=== PATIENT | female | born 1985 | race Caucasian/White ===

== ENCOUNTER 2019-03-14 13:36 | Emergency (ER) | payer OTHER ==
[~2019-03-14] VITALS: Ht 175.3 cm; Wt 54.4 kg
[2019-03-14] MEDS ORDERED: ASPIRIN 81 MG CHEW (CHILDREN'S ASA) PO ONE (14:15)
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
[2019-03-14 14:42] LABS: HEMATOCRIT 37 % (35-52); HEMOGLOBIN 12.2 G/DL (11.5-16.0); MEAN CORPUSCULAR HEMOGLOBIN 30 PG (25-34); MEAN CORPUSCULAR HGB CONC 33 G/DL (32-36); MEAN CORPUSCULAR VOLUME 90 FL (80-99); WHITE BLOOD COUNT 5.5 10^3/uL (4.3-11.0)
[2019-03-14 14:43] LABS: BASOPHILS % (AUTO) 1 % (0-10); EOSINOPHILS # (AUTO) 0.1 10^3/uL (0.0-0.3); EOSINOPHILS % (AUTO) 3 % (0-10); LYMPHOCYTES # (AUTO) 2.1 X 10^3 (1.0-4.0); LYMPHOCYTES % (AUTO) 37 % (12-44); MEAN PLATELET VOLUME 9.3 FL (7.4-10.4); MONOCYTES # (AUTO) 0.4 X 10^3 (0.0-1.0); MONOCYTES % (AUTO) 7 % (0-12); NEUTROPHILS # (AUTO) 2.9 X 10^3 (1.8-7.8); NEUTROPHILS % (AUTO) 52 % (42-75); PLATELET COUNT 223 10^3/uL (130-400); RED CELL DISTRIBUTION WIDTH 13.5 % (10.0-14.5)
[2019-03-14 15:04] LABS: BILIRUBIN,URINE NEGATIVE (NEGATIVE); CLARITY,URINE SL CLOUDY; COLOR,URINE YELLOW; GLUCOSE, URINE (UA) NEGATIVE (NEGATIVE); KETONES,URINE TRACE (NEGATIVE); LEUKOCYTE ESTERASE ,URINE NEGATIVE (NEGATIVE); NITRITE,URINE NEGATIVE (NEGATIVE); PROTEIN,URINE NEGATIVE (NEGATIVE); SQUAMOUS EPITHELIAL CELL,UR >50 /HPF; UROBILINOGEN,URINE 0.2 MG/DL (NORMAL)
[2019-03-14 15:05] LABS: AMORPHOUS SEDIMENT,UR MOD AMOR URATES /LPF
[2019-03-14 15:05] LABS: BUN/CREATININE RATIO 18; CALCIUM 9.6 MG/DL (8.5-10.1); CARBON DIOXIDE 27 MMOL/L (21-32); CHLORIDE 103 MMOL/L (98-107); GFR ESTIMATED > 60; GLUCOSE 90 MG/DL (70-105); MAGNESIUM 2.2 MG/DL (1.6-2.4); POTASSIUM 4.3 MMOL/L (3.6-5.0); SODIUM 142 MMOL/L (135-145)
[2019-03-14 15:06] LABS: ALANINE AMINOTRANSFERASE 10 U/L (0-55); ALBUMIN 4.4 GM/DL (3.2-4.5); ALKALINE PHOSPHATASE 21 U/L (40-136); BILIRUBIN,TOTAL 0.2 MG/DL (0.1-1.0); TOTAL PROTEIN 7.2 GM/DL (6.4-8.2)
[2019-03-14 15:09] LABS: PROTHROMBIN TIME PATIENT 13.1 SEC (12.2-14.7)
[2019-03-14 15:09] LABS: AMPHETAMINE SCREEN, URINE NEGATIVE (NEGATIVE); BARBITURATE SCREEN URINE NEGATIVE (NEGATIVE); BENZODIAZEPINES SCREEN URINE NEGATIVE (NEGATIVE); CANNABINOID SCREEN, URINE NEGATIVE (NEGATIVE); COCAINE SCREEN URINE NEGATIVE (NEGATIVE); METHADONE STAT NEGATIVE (NEGATIVE); METHAMPHETAMINE SCREEN URINE S NEGATIVE (NEGATIVE); OPIATE SCREEN URINE NEGATIVE (NEGATIVE); OXYCODONE STAT NEGATIVE (NEGATIVE); PROPOXYPHENE STAT NEGATIVE (NEGATIVE); TRICYCLIC ANTIDEPRESSANTS SCRE NEGATIVE (NEGATIVE)
[2019-03-14 15:33] VITALS: BP 95/52
--- NOTE | 2019-03-14 15:41 | Diagnostic Imaging Report ---
INDICATION: Chest pain, anxiety, convulsions. EXAMINATION: Chest, 03/14/2019. FINDINGS: Lungs are hyperinflated but clear. No infiltrates or effusions. No pneumothorax. Heart and pulmonary vasculature are normal in appearance. IMPRESSION: Hyperinflation of the lungs, otherwise negative chest. Dictated by: Dictated on workstation # [id number]
== END 2019-03-14 15:33 | disposition home or self-care (01) ==
LOC: EDUNIT# 13:36 → ER FS 13:38
DX: R07.9 Chest pain, unspecified (principal); R06.02 Shortness of breath; F31.9 Bipolar disorder, unspecified; F17.210 Nicotine dependence, cigarettes, uncomplicated
CPT/HCPCS: 36415; 71045; 80053; 80306; 81000; 83735; 83874; 83880; 84484; 84703; 85025; 85610; 85730; 93005; 93041

== ENCOUNTER 2019-06-25 15:20 | Emergency (ER) | payer SELFPAY ==
[~2019-06-25] VITALS: Ht 175 cm; Wt 59.0 kg
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
[2019-06-25] MEDS ORDERED: IBUP-1780 PO (16:13)
[2019-06-25] MEDS ORDERED: HYDR-3812 PO (16:13)
[2019-06-25 16:32] VITALS: BP 112/79
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
== END 2019-06-25 16:30 | disposition home or self-care (01) ==
LOC: ER FS 15:21
DX: S00.83XA Contusion of other part of head, initial encounter (principal); F41.9 Anxiety disorder, unspecified; F31.9 Bipolar disorder, unspecified; F17.210 Nicotine dependence, cigarettes, uncomplicated; Y04.0XXA Assault by unarmed brawl or fight, initial encounter; Y92.009 Unspecified place in unspecified non-institutional (private) residence as the place of occurrence of the external cause
CPT/HCPCS: 70450; 70486

== ENCOUNTER 2019-10-20 14:46 | Emergency (ER) | payer SELFPAY ==
[~2019-10-20] VITALS: Ht 175 cm; Wt 51.6 kg
[~2019-10-20 14:46] MED LIST: ACHD5005 PO; IBUP-1780 PO
[2019-10-20] MEDS ORDERED: BUPR150T14 (15:11)
[2019-10-20] MEDS ORDERED: QUET25TA73 (15:11)
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
[2019-10-20 16:34] VITALS: BP 117/92
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
[2019-10-21] MEDS ORDERED: DIVA250T12 PO (09:01)
[2019-10-21] MEDS ORDERED: BUPR150T9 PO (09:01)
== END 2019-10-20 16:38 | disposition home or self-care (01) ==
LOC: EDUNIT# 14:46 → ER FS 14:49
DX: T43.291A Poisoning by other antidepressants, accidental (unintentional), initial encounter (principal); F31.9 Bipolar disorder, unspecified; F32.9 Major depressive disorder, single episode, unspecified; F17.290 Nicotine dependence, other tobacco product, uncomplicated
CPT/HCPCS: 99283

== ENCOUNTER 2019-10-20 22:22 | Observation (INO) | payer SELFPAY ==
[~2019-10-20] VITALS: Ht 152.4 cm; Wt 60.4 kg
[~2019-10-20 22:22] MED LIST changes: +BUPR150T14; +QUET25TA73
[2019-10-20] MEDS ORDERED: NS IV 1000 ML 1,000 ML ONE ×2 (22:29→23:14)
--- NOTE | 2019-10-20 22:48 | ED Psychosocial ---
General Chief Complaint: Substance Abuse Stated Complaint: OVERDOSE Source: patient Exam Limitations: no limitations History of Present Illness Date Seen by Provider: Oct 20, 2019 Time Seen by Provider: 22:33 Initial Comments Xvydvoxo-xnoc-zsk female read presents to the emergency room. Patient has been seen earlier this evening and she stated to me that she had taken 5 Wellbutrin sustained release 150 mg tablets erroneously thinking that they were her Depakot e. Patient did report that she had taken 6 tablets to the RN. Patient was evaluated found to be medically stable and returned home. She states that she received a telephone call from the [facility] that told her that she needed to be admitted to the hospital for observation for at least 24 hours. This upset the patient she became nauseated came back into the emergency room and we are reevaluating the patient. Patient has nausea but no evidence of emesis. She has more emotionally distraught because she feels that she is at risk from the bupropion exposure. She has no history of seizures. Patient denies alterative the pills and swallowed them as sustained release. Patient did consent to diagnostic and therapeutic services. Normal saline hydration has been started and comprehensive laboratory evaluation for potential psychiatric admission has been initiated. Patient denies any possibility of but test is being done. Urine toxicology and alcohol levels also been done. Should be noted this consultation utilizes [employer] software and efforts of been made to review all errors and correct them. Any errors that have penetrated the review process are not intentional. If there are any questions regarding this dictation please contact Dionisio Wong DO Timing/Duration: just prior to arrival Severity: mild (patient is more upset after the telephone call from the Poison Control Center) Associated Symptoms: anxiety, other (patient has become nauseated after the call from the Po[facility] Control Center) Allergies and Home Medications Allergies Coded Allergies: No Known Drug Allergies (Unverified , 03/14/19) Patient Home Medication List Home Medication List Reviewed: Yes Review of Systems Constitutional: other (the previous admission earlier to this evening the patient denies any other symptoms. She now is emotionally upset and nauseated after the telephone call from the Po[facility] Control Center) EENTM: no symptoms reported, nose congestion (from nausea) Respiratory: no symptoms reported Cardiovascular: no symptoms reported Gastrointestinal: nausea (but no observed emesis) : No Musculoskeletal: no symptoms reported Skin: no symptoms reported, other (old tattoos and scars healed on the forearms. She was engaged in ongoing psychotherapy with Sandra from the mental health clinic) Psychiatric/Neurological: Anxiety, Depressed (denies suicidal or homicidal ideation), Emotional Problems Past Avizzdf-Mchvwl-Ffgnit Hx Patient Social History Alcohol Use: Denies Use Recreational Drug Use: Yes Drug of Choice: Meth Smoking Status: Smoker Current Status UKN Type Used: Electronic/Vapor 2nd Hand Smoke Exposure: No Recent Foreign Travel: No Contact w/Someone Who Travel: No Recent Hopitalizations: No Immunizations Up To Date Tetanus Booster (TDap): More than 5yrs Seasonal Allergies Seasonal Allergies: No Past Medical History Surgeries: Yes (Dental) Respiratory: No Cardiac: No Neurological: No Genitourinary: No Gastrointestinal: No Musculoskeletal: No Endocrine: No HEENT: No Cancer: No Psychosocial: Yes Anxiety, Bipolar, Depression Integumentary: No Blood Disorders: No Physical Exam Vital Signs - First Documented 10/20/19 22:30 Temp 36.4 Pulse 91 Resp 18 B/P (MAP) 113/77 (89) O2 Delivery Room Air Capillary Refill : Height, Weight, BMI Height: 5'9.00" Weight: 120lbs. oz. 54.842781sk; 16.00 BMI Method:Stated General Appearance: WD/WN, mild distress (and admits to agitation nausea and emotional distress after the telephone call from the Po[facility] Control Center), thin HEENT: PERRL/EOMI, normal ENT inspection, pharynx normal Neck: non-tender, full range of motion, supple, normal inspection Respiratory: chest non-tender, lungs clear, normal breath sounds, no respiratory distress, no accessory muscle use Cardiovascular: regular rate, rhythm, no edema, no gallop, no JVD, no murmur Peripheral Pulses: 2+ Carotid (R), 2+ Carotid (L) Gastrointestinal: normal bowel sounds, non tender, soft, no organomegaly, no pulsatile mass, other (L complains of nausea but no evidence of emesis) Extremities: normal range of motion, non-tender, normal inspection, no pedal edema, no calf tenderness 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, no motor/sensory deficits, alert, normal mood/affect, oriented x 3 Appearance/Memory: appropriate appearance, appropriate insight (visibly more upset after the telephone call from the Po[facility] Control [facility]) Behavior/Eye Contact: cooperative, good eye contact, normal speech, other (admits to emotional upset after call from the Po[facility] Control Center) Thoughts/Hallucinations: normal thought pattern, no apparent hallucination Skin: normal color, warm/dry, tattoos/piercings Lymphatic: no adenopathy Progress/Results/Core Measures Results/Orders Lab Results Laboratory Tests Test 10/20/19 22:32 10/21/19 00:06 Range/Units White Blood Count 7.3 4.3-11.0 10^3/uL Red Blood Count 4.26 L 4.35-5.85 10^6/uL Hemoglobin 12.6 11.5-16.0 G/DL Hematocrit 37 35-52 % Mean Corpuscular Volume 87 80-99 FL Mean Corpuscular Hemoglobin 30 25-34 PG Mean Corpuscular Hemoglobin Concent 34 32-36 G/DL Red Cell Distribution Width 12.3 10.0-14.5 % Platelet Count 329 130-400 10^3/uL Mean Platelet Volume 9.5 7.4-10.4 FL Neutrophils (%) (Auto) 73 42-75 % Lymphocytes (%) (Auto) 20 12-44 % Monocytes (%) (Auto) 7 0-12 % Eosinophils (%) (Auto) 0 0-10 % Basophils (%) (Auto) 0 0-10 % Neutrophils # (Auto) 5.3 1.8-7.8 X 10^3 Lymphocytes # (Auto) 1.4 1.0-4.0 X 10^3 Monocytes # (Auto) 0.5 0.0-1.0 X 10^3 Eosinophils # (Auto) 0.0 0.0-0.3 10^3/uL Basophils # (Auto) 0.0 0.0-0.1 10^3/uL Sodium Level 141 135-145 MMOL/L Potassium Level 4.0 3.6-5.0 MMOL/L Chloride Level 102 98-107 MMOL/L Carbon Dioxide Level 23 21-32 MMOL/L Anion Gap 16 H 5-14 MMOL/L Blood Urea Nitrogen 8 7-18 MG/DL Creatinine 0.91 0.60-1.30 MG/DL Estimat Glomerular Filtration Rate > 60 BUN/Creatinine Ratio 9 Glucose Level 123 H 70-105 MG/DL Calcium Level 9.6 8.5-10.1 MG/DL Corrected Calcium 8.5-10.1 MG/DL Magnesium Level 2.0 1.6-2.4 MG/DL Total Bilirubin 0.4 0.1-1.0 MG/DL Aspartate Amino Transf (AST/SGOT) 15 5-34 U/L Alanine Aminotransferase (ALT/SGPT) 10 0-55 U/L Alkaline Phosphatase 60 40-136 U/L Total Protein 7.8 6.4-8.2 GM/DL Albumin 4.6 H 3.2-4.5 GM/DL Salicylates Level < 0.3 L 5.0-20.0 MG/DL Acetaminophen Level < 10 L 10-30 UG/ML Serum Alcohol < 10 <10 MG/DL Urine Color YELLOW Urine Clarity CLEAR Urine pH 7.0 5-9 Urine Specific Avant 1.010 L 1.016-1.022 Urine Protein NEGATIVE NEGATIVE Urine Glucose (UA) NEGATIVE NEGATIVE Urine Ketones NEGATIVE NEGATIVE Urine Nitrite NEGATIVE NEGATIVE Urine Bilirubin NEGATIVE NEGATIVE Urine Urobilinogen 0.2 < = 1.0 MG/DL Urine Leukocyte Esterase 1+ H NEGATIVE Urine RBC (Auto) NEGATIVE NEGATIVE Urine RBC NONE /HPF Urine WBC 10-25 H /HPF Urine Squamous Epithelial Cells 2-5 /HPF Urine Crystals NONE /LPF Urine Bacteria FEW H /HPF Urine Casts NONE /LPF Urine Mucus NEGATIVE /LPF Urine Culture Indicated YES Urine Test NEGATIVE NEGATIVE Urine Opiates Screen NEGATIVE NEGATIVE Urine Oxycodone Screen NEGATIVE NEGATIVE Urine Methadone Screen NEGATIVE NEGATIVE Urine Propoxyphene Screen NEGATIVE NEGATIVE Urine Barbiturates Screen NEGATIVE NEGATIVE Ur Tricyclic Antidepressants Screen NEGATIVE NEGATIVE Urine Phencyclidine Screen NEGATIVE NEGATIVE Urine Amphetamines Screen POSITIVE H NEGATIVE Urine Methamphetamines Screen POSITIVE H NEGATIVE Urine Benzodiazepines Screen NEGATIVE NEGATIVE Urine Cocaine Screen NEGATIVE NEGATIVE Urine Cannabinoids Screen NEGATIVE NEGATIVE My Orders Orders - DIONISIO WONG DO Ns Iv 1000 Ml (Sodium Chloride 0.9%) (10/20/19 22:29) Cbc With Automated Diff (10/20/19 22:34) Comprehensive Metabolic Panel (10/20/19 22:34) Alcohol (10/20/19 22:34) Acetaminophen (10/20/19 22:34) Salicylate (10/20/19 22:34) Ua Culture If Indicated (10/20/19 22:34) Drug Screen Stat (Urine) (10/20/19 22:34) Ed Iv/Invasive Line Start (10/20/19 22:34) Hcg,Qualitative Urine (10/20/19 22:39) Magnesium (10/20/19 22:39) Urinalysis (10/20/19 22:39) Ekg Tracing (10/20/19 22:39) Ns Iv 1000 Ml (Sodium Chloride 0.9%) (10/20/19 23:14) Urine Culture (10/21/19 00:06) Medications Given in ED Current Medications Medications Dose Ordered Sig/Leah Route Start Time Stop Time Status Last Admin Dose Admin Sodium Chloride 1,000 ml @ ud STK-MED ONCE .ROUTE 10/20/19 22:29 10/20/19 22:35 DC 10/20/19 22:38 1,000 MLS/HR Sodium Chloride 1,000 ml @ ud STK-MED ONCE .ROUTE 10/20/19 23:14 10/20/19 23:20 DC 10/20/19 23:22 1,000 MLS/HR Vital Signs/I&O 10/20/19 22:30 Temp 36.4 Pulse 91 Resp 18 B/P (MAP) 113/77 (89) O2 Delivery Room Air 10/21/19 00:00 Intake Total 1000 ml Balance 1000 ml Progress Progress Note : Time: 01:01 Progress Note Patient appears to be medically stable but in light of the accidental ingestion of any worse between 750 mg and 900 mg of bupropion patient is advised to have inpatient care with observation for total 24 hours. She is been observed in the emergency room for the past evening. Dr. Burt was contacted as a hospitalist and agrees to [facility] admission for observation and admission orders have been submitted. Patient will be transferred by EMS Initial ECG Impression Date: Oct 21, 2019 Initial ECG Impression Time: 22:57 Initial ECG Rate: 82 Initial ECG Intervals: Normal Initial ECG Impression: Normal Departure Impression Primary Impression: Bupropion overdose Additional Impressions: Methamphetamine abuse Urinary tract infection Disposition: ADMITTED INPATIENT (observation) Condition: Improved Admissions Decision to Admit Reason: Admit from ER (General) Decision to Admit/Date: Oct 21, 2019 Time/Decision to Admit Time: 01:05 Transfer Transfer Reason: Exceeds level of care Time Spoke to Accepting Phy: 00:[address] Burt as hospitalist has accepted the patient [facility] observation for bupropion overdose patient has no signs of suicidal or homicidal ideation but did have positive findings for methamphetamine use. She also has urinary tract infection is being treated with Bactrim DS Transfer Time: 01:06 Transfer Facility: [facility] Method of Transfer: EMS Departure-Patient Inst. Referrals: NO,LOCAL PHYSICIAN (PCP/Family) Primary Care Physician Patient Instructions: ALCOHOL AND SUBSTANCE ABUSE, Accidental Overdose (DC), Methamphetamine, Urinary Tract Infection, Adult (DC) Add. Discharge Instructions: [facility] being admitted for observation for accidental overdose of bupropion. Patient reports that she took between 750 and 900 mg of Wellbutrin 150 SR by mistake thinking it was her Depakote. Patient does have a therapist Sandra in the local mental health facilities she is not suicidal or homicidal and has no evidence of psychoses or delusions. Patient also has urinary tract infection will be started on Bactrim DS Dr. Burt will assume responsibility for the patient orders have been written transfer orders have been written All discharge instructions reviewed with patient and/or family. Voiced understanding. Copy Copies To 1: BEBA BURT MD, ANTHONY H DO Oct 20, 2019 22:48
--- NOTE | 2019-10-20 22:53 | NUR ---
PT. REPORTED SHE ACCIDENTLY TOOK THE WELLBUTRIN WHEN SHE WAS TAKING HER OTHER MEDICATION AND GOT THEM MIXED UP. PT. REPORTED SHE DID NOT TRY TO HURT HERSELF AND THERE WAS NO MENTAL HEALTH SCREENING TODAY.
[2019-10-20 22:55] LABS: BASOPHILS % (AUTO) 0 % (0-10); EOSINOPHILS % (AUTO) 0 % (0-10); HEMATOCRIT 37 % (35-52); HEMOGLOBIN 12.6 G/DL (11.5-16.0); LYMPHOCYTES # (AUTO) 1.4 X 10^3 (1.0-4.0); LYMPHOCYTES % (AUTO) 20 % (12-44); MEAN CORPUSCULAR HEMOGLOBIN 30 PG (25-34); MEAN CORPUSCULAR HGB CONC 34 G/DL (32-36); MEAN CORPUSCULAR VOLUME 87 FL (80-99); MEAN PLATELET VOLUME 9.5 FL (7.4-10.4); MONOCYTES # (AUTO) 0.5 X 10^3 (0.0-1.0); MONOCYTES % (AUTO) 7 % (0-12); NEUTROPHILS # (AUTO) 5.3 X 10^3 (1.8-7.8); NEUTROPHILS % (AUTO) 73 % (42-75); PLATELET COUNT 329 10^3/uL (130-400); RED CELL DISTRIBUTION WIDTH 12.3 % (10.0-14.5); WHITE BLOOD COUNT 7.3 10^3/uL (4.3-11.0)
[2019-10-20 23:05] LABS: ALKALINE PHOSPHATASE 60 U/L (40-136); BILIRUBIN,TOTAL 0.4 MG/DL (0.1-1.0); BUN/CREATININE RATIO 9; CALCIUM 9.6 MG/DL (8.5-10.1); CARBON DIOXIDE 23 MMOL/L (21-32); CHLORIDE 102 MMOL/L (98-107); CREATININE SERUM 0.91 MG/DL (0.60-1.30); GFR ESTIMATED > 60; GLUCOSE 123 MG/DL (70-105); SODIUM 141 MMOL/L (135-145)
[2019-10-20 23:06] LABS: ACETAMINOPHEN < 10 UG/ML (10-30); ALANINE AMINOTRANSFERASE 10 U/L (0-55); ALBUMIN 4.6 GM/DL (3.2-4.5); SALICYLATE < 0.3 MG/DL (5.0-20.0); TOTAL PROTEIN 7.8 GM/DL (6.4-8.2)
--- NOTE | 2019-10-20 23:33 | NUR ---
PT. UNABLE TO VOID SO THE 2ND LITER OF FLUIDS WAS STARTED. PT RECEIVED A BLANKET AT THIS TIME.
[2019-10-21] VITALS (7 sets, daily range): BP systolic 107–169; BP diastolic 65–96
[2019-10-21 00:19] LABS: BACTERIA,URINE FEW /HPF; BILIRUBIN,URINE NEGATIVE (NEGATIVE); CLARITY,URINE CLEAR; COLOR,URINE YELLOW; GLUCOSE, URINE (UA) NEGATIVE (NEGATIVE); KETONES,URINE NEGATIVE (NEGATIVE); NITRITE,URINE NEGATIVE (NEGATIVE); PROTEIN,URINE NEGATIVE (NEGATIVE)
[2019-10-21 00:20] LABS: LEUKOCYTE ESTERASE ,URINE 1+ (NEGATIVE)
[2019-10-21 00:23] LABS: AMPHETAMINE SCREEN, URINE POSITIVE (NEGATIVE); BARBITURATE SCREEN URINE NEGATIVE (NEGATIVE); BENZODIAZEPINES SCREEN URINE NEGATIVE (NEGATIVE); CANNABINOID SCREEN, URINE NEGATIVE (NEGATIVE); COCAINE SCREEN URINE NEGATIVE (NEGATIVE); HCG,QUALITATIVE URINE NEGATIVE (NEGATIVE); METHADONE STAT NEGATIVE (NEGATIVE); METHAMPHETAMINE SCREEN URINE S POSITIVE (NEGATIVE); OPIATE SCREEN URINE NEGATIVE (NEGATIVE); OXYCODONE STAT NEGATIVE (NEGATIVE); PROPOXYPHENE STAT NEGATIVE (NEGATIVE); TRICYCLIC ANTIDEPRESSANTS SCRE NEGATIVE (NEGATIVE)
[2019-10-21] MEDS ORDERED: TRIM/SULFAMETH 160/800 (SEPTRA DS) TAB PO ONE ×2 (00:53→01:15)
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
--- NOTE | 2019-10-21 02:23 | NUR ---
ABDI JOYNER V admitted to room 407-1, with an admitting diagnosis of , on 10/21/19 from ED via EMS, accompanied by EMS STAFF.ABDI JOYNER V introduced to surroundings, call light, bed controls, phone, TV, temperature control, lights, meal times, smoking policy, visitor policy, side rail policy, bathrooms and showers. Patient Rights given to patient in the handbook.ABDI JOYNER V verbalizes understanding that [facility] is not responsible for the loss or damage to any personal effects or valuables that are kept in the patients posession during their hospitalization. The following Patient Care Plans were discussed with the PATIENT: Discharge Planning, UTI,BUPROPION OVERDOSE, and METHAMPHETAMINE ABUSE. ABDI JOYNER V verbalizes understanding of Interdisciplinary Patient Education. Patient and/or family were informed about the Rapid Response Team and its purpose.
[2019-10-21] MEDS ORDERED: NS IV 1000 ML 1,000 ML ONE (03:58)
[2019-10-21 05:04] LABS: BASOPHILS % (AUTO) 0 % (0-10); EOSINOPHILS % (AUTO) 1 % (0-10); HEMATOCRIT 32 % (35-52); HEMOGLOBIN 10.7 G/DL (11.5-16.0); LYMPHOCYTES # (AUTO) 1.4 X 10^3 (1.0-4.0); LYMPHOCYTES % (AUTO) 27 % (12-44); MEAN CORPUSCULAR HEMOGLOBIN 30 PG (25-34); MEAN CORPUSCULAR HGB CONC 33 G/DL (32-36); MEAN CORPUSCULAR VOLUME 89 FL (80-99); MEAN PLATELET VOLUME 9.2 FL (7.4-10.4); MONOCYTES # (AUTO) 0.5 X 10^3 (0.0-1.0); MONOCYTES % (AUTO) 10 % (0-12); NEUTROPHILS # (AUTO) 3.2 X 10^3 (1.8-7.8); NEUTROPHILS % (AUTO) 62 % (42-75); PLATELET COUNT 236 10^3/uL (130-400); RED CELL DISTRIBUTION WIDTH 12.6 % (10.0-14.5); WHITE BLOOD COUNT 5.2 10^3/uL (4.3-11.0)
[2019-10-21 05:28] LABS: ALANINE AMINOTRANSFERASE 11 U/L (0-55); ALBUMIN 3.7 GM/DL (3.2-4.5); ALKALINE PHOSPHATASE 48 U/L (40-136); BILIRUBIN,TOTAL 0.4 MG/DL (0.1-1.0); BUN/CREATININE RATIO 8; CALCIUM 8.2 MG/DL (8.5-10.1); CARBON DIOXIDE 21 MMOL/L (21-32); CHLORIDE 111 MMOL/L (98-107); CREATININE SERUM 0.74 MG/DL (0.60-1.30); GFR ESTIMATED > 60; GLUCOSE 92 MG/DL (70-105); POTASSIUM 3.7 MMOL/L (3.6-5.0); SODIUM 141 MMOL/L (135-145); TOTAL PROTEIN 5.9 GM/DL (6.4-8.2)
[2019-10-21] MEDS: TRIM/SULFAMETH 160/800 (SEPTRA DS) TAB PO SCH ×2 (07:28→17:06)
[2019-10-21] MEDS ORDERED: DIVA250T12 PO (09:01)
[2019-10-21] MEDS ORDERED: BUPR150T9 PO (09:01)
--- NOTE | 2019-10-21 09:01 | NUR ---
SPOKE WITH THE PT, WENT THRU THE EXT MED HISTORY AND CALLED THE MENTAL HEALTH FACILITY SHE GOES TO AND [facility] TO COMPLETE THE MED REC PT ADMITS SHE IS NON-COMPLIANT AND STARTS AND STOPS MEDICATIONS SHE SEES FIT. AT HER LAST APPT AT [facility] OFFICE THEY GAVE HER DEPAKOTE 250MG #93/23 DS AND SENT OTHER RXS TO [facility] TO BE FILLED. 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 PRAZOSIN AND SEROQUEL ARE THE MEDS THE PT SAYS SHE HAS NOT BEEN TAKING AT ALL (FOR THIS REASON I LEFT THEM OFF THE MED REC) I SPOKE WITH THE ATTENDING PHYSICIAN TO FIND OUT ABOUT PUTTING THEM ON THE MED REC (USUALLY I WOULD LEAVE THESE OFF THE MED REC DUE TO THE PAST DUE FILL, BUT DUE TO THE TYPE OF MEDS I WANTED THE PHYSICIAN TO BE AWARE ) -SHE AGREED AND WANTED DEPAKOTE AND WELLBUTRIN ADDED TO THE MED REC. I DID DOCUMENT THE PAST DUE FILL ON THE MED REC.
--- NOTE | 2019-10-21 11:14 | Short Stay Summary-Hospitalist ---
History of Present Illness HPI/Chief Complaint patient is a 34 old female with past medical history of anxiety and depression who presented to the emergency department after an accidental overdose. She states that she normally takes 5 Depakote but accidentally took 5 tabs of her 150mg Wellbutrin. She denies any suicidal or self harm intentions. She last filled her medications in April or May and then went to rehab and then attempted to treat her symptoms naturally without prescription medications. She recently restarted them. She is follow with Sandra Rangel at the [facility]. Poison Control was contacted and recommended 24 hours of observation. Date Seen 10/21/19 Time Seen by a Provider: 10:51 Attending Physician Baldemar Dickerson MD PCP No,Local Physician Referring Physician Date of Admission Oct 21, 2019 at 00:50 Home Medications & Allergies Home Medications Reviewed patient Home Medication Reconciliation performed by pharmacy medication reconciliations industrial maintenance technician and/or nursing. Patients Allergies have been reviewed. Allergies Allergies Coded Allergies No Known Drug Allergies (Unverified03/14/19) Past Xejomsq-Lbdynl-Qosqrz Hx Past Med/Social Hx: Reviewed Nursing Past Med/Soc Hx Patient Social History Alcohol Use: Denies Use Recreational Drug Use: Yes Drug of Choice: Meth Smoking Status: Smoker Current Status [facility] Type Used: Electronic/Vapor 2nd Hand Smoke Exposure: No Recent Foreign Travel: No Contact w/other who traveled: No Recent Hopitalizations: No Recent Infectious Disease Expo: No Immunizations Up To Date Tetanus Booster (TDap): More than 5yrs Seasonal Allergies Seasonal Allergies: No Past Medical History : No Psychosocial: Anxiety, Bipolar, Depression History of Blood Disorders: No Family History FH: multiple sclerosis Review of Systems Constitutional: No chills, No fever Respiratory: No cough, No short of breath Psychiatric/Neurological: Headache All Other Systems Reviewed Negative Unless Noted: Yes (Negative excepted noted.) Physical Exam Physical Exam Vital Signs Vital Signs - First Documented 10/20/19 10/21/19 10/21/19 22:30 01:23 13:41 Temp 36.4 Pulse 91 Resp 18 B/P (MAP) 113/77 (89) Pulse Ox 100 O2 Delivery Room Air O2 Flow Rate 3.00 Capillary Refill : Less Than 3 Seconds Height, Weight, BMI Height: 5'9.00" Weight: 120lbs. oz. 54.833792ho; 16.71 BMI Method:Stated General Appearance: No Apparent Distress, WD/WN, Thin HEENT: PERRL/EOMI, Moist Mucous Membranes Neck: Normal Inspection, Supple Respiratory: Lungs Clear, No Accessory Muscle Use, No Respiratory Distress Cardiovascular: Regular Rate, Rhythm, No Murmur Gastrointestinal: Normal Bowel Sounds, Non Tender, Soft Extremity: No Calf Tenderness, No Pedal Edema Neurologic/Psychiatric: Alert, Oriented x3, Normal Mood/Affect Skin: Normal Color, Warm/Dry Results Results/Procedures Labs Laboratory Tests 10/20/19 22:32 10/21/19 04:55 Patient resulted labs reviewed. Short Stay Diagnosis Discharge Diagnosis-Short Stay Admission Diagnosis Accidental Overdose Final Discharge Diagnosis Accidental Overdose Conclusion Plan Accidental Overdose No intention of any self harm per patient Will follow up with her mental health provider Monitored overnight for 24 hours per poison control recs without complication Doing well, will DC home Diagnosis/Problems Diagnosis/Problems (1) Accidental overdose Status: Acute Qualifiers: Qualified Codes: T50.901A - Poisoning by unspecified drugs, medicaments and biological substances, accidental (unintentional), initial encounter Clinical Quality Measures DVT/VTE Risk/Contraindication: RFS Level Per Nursing on Admit: 0=No Risk/No VTE PPX LUIS MADRID MD Oct 21, 2019 11:13
[2019-10-21] MEDS: NS IV 1000 ML 1,000 ML IV SCH ×2 (12:09→13:11)
--- NOTE | 2019-10-21 15:12 | Discharge Inst-Simple/Standard ---
Discharge Inst-Standard Patient Instructions/Follow Up Plan of Care/Instructions/FU: Please continue to take your medications as written. Please follow up with your PCP in the next week to follow up this hospital stay. Activity as Tolerated: Yes Discharge Diet: No Restrictions Return to The Hospital For: Chest pain, palpitations, shortness of breath, fever, if you feel you are getting worse. LUIS MADRID MD Oct 21, 2019 15:12
--- NOTE | 2019-10-21 16:16 | NUR ---
CM/SS: Visited with pt as to plan for discharge Plan: Pt will return home, with no services. However she is encouraged to obtain a primary physician, mental health and substance abuse counseling. Summary: Pt reports that she had taken too many meds. Pt shares that she has an extensive history, related to drugs, alcohol, and messed up life. This worker talks with pt. She appears to be open and honest and knows what she needs to do to feel better and remain clean and sober, but has a hard time doing so. Pt has a 5 year old son, who is in the custody of his father. Pt does get to see him. Pt was recently in treatment and was kicked out on the last day for making out with one of the male residents. Pt was court ordered to be there. Pt verbalizes understanding of the services needed. She is aware how to access and knows whenever she is ready she can do so. She thanks this worker for visiting. Pt to be dismissed to home, once her ride arrives.
== END 2019-10-21 19:40 | disposition home or self-care (01) ==
LOC: EDUNIT# 22:22 → ER FS 22:24 → 4TH 10-21 00:50
PROVIDERS: ADMIT Internal Medicine; ATTEND Internal Medicine
DX: T42.6X1A Poisoning by other antiepileptic and sedative-hypnotic drugs, accidental (unintentional), initial encounter (principal); N39.0 Urinary tract infection, site not specified; F15.10 Other stimulant abuse, uncomplicated; F41.9 Anxiety disorder, unspecified; F31.9 Bipolar disorder, unspecified; F17.290 Nicotine dependence, other tobacco product, uncomplicated; Z79.899 Other long term (current) drug therapy
CPT/HCPCS: 36415; 80053; 80306; 80320; 80329; 81000; 83735; 84703; 85025; 87077; 87088

== ENCOUNTER 2020-04-27 18:20 | Outpatient (CLI) | payer MEDICAID, OTHER ==
[~2020-04-27] VITALS: Ht 175.3 cm; Wt 63.3 kg
[~2020-04-27 18:20] MED LIST changes: +BUPR150T9 PO; +DIVA250T12 PO
--- NOTE | 2020-04-27 18:25 | NUR ---
ABDI JOYNER V presented to unit via ambulation from ED, accompanied by mother, with c/o SPOTTING;LOW BACK PAIN. ABDI JOYNER V weighed, gowned, voided, and to bed. EFHM and TOCO applied, VS taken. ABDI JOYNER V oriented to bed controls, call light, TV, heat, and A/C controls.
[2020-04-27 18:30] VITALS: BP 106/63
[2020-04-27 18:45] VITALS: BP 106/63
[2020-04-27 18:53] LABS: BILIRUBIN,URINE NEGATIVE (NEGATIVE); COLOR,URINE YELLOW; GLUCOSE, URINE (UA) NEGATIVE (NEGATIVE); KETONES,URINE NEGATIVE (NEGATIVE); LEUKOCYTE ESTERASE ,URINE 3+ (NEGATIVE); NITRITE,URINE POSITIVE (NEGATIVE); PROTEIN,URINE TRACE (NEGATIVE)
[2020-04-27 18:58] LABS: BACTERIA,URINE LARGE /HPF; CLARITY,URINE SL CLOUDY; RBC,URINE 0-2 /HPF; WBC,URINE 25-50 /HPF
[2020-04-27 19:15] VITALS: BP 101/57
--- NOTE | 2020-04-27 19:28 | NUR ---
Pt states that she had consensual intercourse last night. After the intercourse she noticed bright red bleeding. states she went to bed and had some spotting when she woke up. States she was treated for Chlamydia one week ago and is uncertain if her s/o was treated as well. Visual exam performed of vaginal area. no active bleeding noted. notified of exam, u/a results given. Discharge received.
[2020-04-27] MEDS ORDERED: CEPH-507 PO (19:38)
[2020-04-27] MEDS ORDERED: AZITHROMYCIN 250 MG TAB (ZITHROMAX) PO NR (19:45)
[2020-04-27] MEDS ORDERED: PREN-8 PO (19:49)
--- NOTE | 2020-04-27 20:10 | NUR ---
Discharge instructions verbalized with pt. Pt states that she will let her partner know that he needs to be treated. States he lives in [place]. Verbalized understanding. Pt discharged home with follow up with . Petr called into [facility] in [facility]
--- NOTE | 2020-04-28 08:19 | Physician Query-Final Dx ---
Clinic Account Progress/Dx Physician Query: Please give diagnosis Please include # weeks gestation Date of Service Apr 27, 2020 at 18:20 MEGHAN ESCOBEDO Apr 28, 2020 08:18
== END 2020-04-27 20:10 ==
LOC: LDRP 18:20 → WSo 18:20
PROVIDERS: ATTEND Family Medicine
DX: O46.93 Antepartum hemorrhage, unspecified, third trimester (principal); Z3A.28 28 weeks gestation of pregnancy
CPT/HCPCS: 81000; 87077; 87088; 87186; G0463; 99213

== ENCOUNTER 2020-06-30 10:08 | Outpatient (CLI) | payer MEDICAID ==
[~2020-06-30 10:08] MED LIST changes: +CEPH-507 PO; +PREN-8 PO
--- NOTE | 2020-06-30 10:10 | NUR ---
ABDI JOYNER V presented to unit via ambulation from ED, with c/o PAIN. ABDI JOYNER V weighed, gowned, voided, and to bed. EFHM and TOCO applied, VS taken. ABDI JOYNER V oriented to bed controls, call light, TV, heat, and A/C controls.
[2020-06-30 10:30] VITALS: BP 118/73
[2020-06-30 10:40] LABS: BILIRUBIN,URINE NEGATIVE (NEGATIVE); CLARITY,URINE CLEAR; COLOR,URINE YELLOW; GLUCOSE, URINE (UA) NEGATIVE (NEGATIVE); KETONES,URINE NEGATIVE (NEGATIVE); LEUKOCYTE ESTERASE ,URINE 3+ (NEGATIVE); NITRITE,URINE NEGATIVE (NEGATIVE); PH,URINE 6.5 (5-9); PROTEIN,URINE NEGATIVE (NEGATIVE)
[2020-06-30 10:57] LABS: RBC,URINE RARE /HPF
[2020-06-30 10:58] LABS: BACTERIA,URINE TRACE /HPF; SQUAMOUS EPITHELIAL CELL,UR 25-50 /HPF
--- NOTE | 2020-06-30 11:15 | NUR ---
Dr Reeder called and notified of pt arrival, at 37.5 weeks gestation. Pt arrives c/o h/a and seeing spots since this am and epigastric pain described as "dull" and "constant". notified of ctx pattern, FHR, VS, UA, other pertinent pt history, including history of h/a and seeing spots during this . Order rec'd for protonix and to call in omeprazole 20mg to take daily, dispense 20 and to follow up with as scheduled or sooner as needed.
[2020-06-30] MEDS ORDERED: OMEP20TA7 PO (11:24)
[2020-06-30] MEDS ORDERED: PANTOPRAZOLE 20 MG TABLET (PROTONIX) PO NR (11:30)
--- NOTE | 2020-06-30 11:54 | NUR ---
Discharge instructions explained to pt with copy provided to pt. Pt notified of script sent to [facility]. Pt verbalizes understanding of instructions and signs to verify. Ambulates off unit to private vehicle with all personal belongings. No s/s of distress noted.
--- NOTE | 2020-07-03 09:27 | Physician Query-Final Dx ---
MEGHAN ESCOBEDO 07/03/2027: Clinic Account Progress/Dx Physician Query: Please give diagnosis Please include # weeks gestation Date of Service Jun 30, 2020 at 10:08 NADIA ROUSE MD 07/05/202050: Clinic Account Progress/Dx DIAGNOSIS: Diagnosis 1. IUP at 37 weeks, non labor 2. Dyspepsia MEGHAN ESCOBEDO Jul 03, 2020 09:27 NADIA ROUSE MD Jul 05, 2020 20:51
== END 2020-06-30 11:54 | disposition home or self-care (01) ==
LOC: WSo 10:08 → LDRP 10:08 → WSo 11:54
PROVIDERS: ATTEND Family Medicine
DX: O99.613 Diseases of the digestive system complicating pregnancy, third trimester (principal); Z3A.37 37 weeks gestation of pregnancy
CPT/HCPCS: 81000; G0463; 99213

== ENCOUNTER 2020-07-09 19:33 | Outpatient (CLI) | payer MEDICAID ==
[~2020-07-09] VITALS: Ht 175.3 cm; Wt 69.4 kg
[2020-07-09 19:30] VITALS: BP 135/80
[~2020-07-09 19:33] MED LIST changes: +OMEP20TA7 PO
--- NOTE | 2020-07-09 19:35 | NUR ---
ABDI JOYNER V presented to unit via from ED, accompanied by s/o, with c/o CONTRACTIONS. ABDI JOYNER V weighed, gowned, voided, and to bed. EFHM and TOCO applied, VS taken. ABDI JOYNER V oriented to bed controls, call light, TV, heat, and A/C controls.
[2020-07-09 19:55] VITALS: BP 135/80
[2020-07-09 20:10] VITALS: BP 123/73
[2020-07-09 20:25] VITALS: BP 115/68
[2020-07-09 20:30] LABS: BILIRUBIN,URINE NEGATIVE (NEGATIVE); CLARITY,URINE SL CLOUDY; COLOR,URINE YELLOW; GLUCOSE, URINE (UA) NEGATIVE (NEGATIVE); KETONES,URINE NEGATIVE (NEGATIVE); LEUKOCYTE ESTERASE ,URINE 3+ (NEGATIVE); NITRITE,URINE NEGATIVE (NEGATIVE); PROTEIN,URINE NEGATIVE (NEGATIVE)
[2020-07-09 20:35] VITALS: BP 119/74
[2020-07-09 20:37] LABS: BACTERIA,URINE TRACE /HPF
--- NOTE | 2020-07-09 20:40 | NUR ---
CALL TO DR FAUST TO GIVE REPORT OF PT CONDITION. ORDER RECEIVED TO D/C PT TO HOME, CONDITION IS STABLE.
--- NOTE | 2020-07-09 20:50 | NUR ---
EFM D/C'D AT THIS TIME. PT ALLOWED TO DRESS.
--- NOTE | 2020-07-09 20:57 | NUR ---
DISCHARGE INSTRUCTIONS REVIEWED. PT VERBALIZES UNDERSTANDING AND SIGNATURE OBTAINED. PT D/C'D TO HOME IN STABLE CONDITION, ACCOMPANIED BY S/O.
--- NOTE | 2020-07-10 08:06 | Physician Query-Final Dx ---
MEGHAN ESCOBEDO 07/10/20 0806: Clinic Account Progress/Dx Physician Query: Please give diagnosis Date of Service Jul 09, 2020 at 19:33 BERNARD FAUST MD 07/11/20 0958: Clinic Account Progress/Dx DIAGNOSIS: Diagnosis Contractions without active labor 39 weeks gestation MEGHAN ESCOBEDO Jul 10, 2020 08:06 BERNARD AFUST MD Jul 11, 2020 09:58
== END 2020-07-09 21:00 | disposition home or self-care (01) ==
LOC: LDRP 19:33 → WSo 19:33
PROVIDERS: ATTEND Family Medicine
DX: O62.9 Abnormality of forces of labor, unspecified (principal); Z3A.00 Weeks of gestation of pregnancy not specified
CPT/HCPCS: 81000; 99213

== ENCOUNTER 2020-09-01 18:13 | Emergency (ER) | payer MEDICAID ==
[~2020-09-01] VITALS: Ht 175.3 cm; Wt 61.5 kg
--- NOTE | 2020-09-01 18:17 | ED Psychosocial ---
General Stated Complaint: DEPRESSION History of Present Illness Date Seen by Provider: Sep 01, 2020 Time Seen by Provider: 18:26 Initial Comments 34-year-old female presents with depression. Patient is approximately 7 weeks with delivery of a healthy male child with no complications by vaginal delivery. She reports that she is struggling with her mood and having bad thoughts. She does not want to present a lot about the thoughts other than she just does not want to be around them. Patient is currently single mom living along with a 7-year-old. The child is with her mother. She will be moving in with the baby's father but will take a couple weeks. Patient is very tearful. Allergies and Home Medications Allergies Coded Allergies: No Known Drug Allergies (Unverified , 03/14/19) Home Medications Omeprazole 20 Mg Tablet.dr, 20 MG PO DAILY Prescribed by: JANAY FULLER on 06/30/20 9691 Patient Home Medication List Home Medication List Reviewed: Yes Review of Systems Constitutional: see HPI EENTM: no symptoms reported Respiratory: no symptoms reported Cardiovascular: no symptoms reported : No Musculoskeletal: no symptoms reported Skin: no symptoms reported Psychiatric/Neurological: See HPI Past Cwgluji-Mztryd-Vpjsea Hx Past Med/Social Hx: Reviewed Nursing Past Med/Soc Hx Patient Social History Drug of Choice: Meth Type Used: Electronic/Vapor 2nd Hand Smoke Exposure: No Recent Hopitalizations: No Immunizations Up To Date Tetanus Booster (TDap): More than 5yrs Date of Influenza Vaccine: May 01, 2020 Seasonal Allergies Seasonal Allergies: No Past Medical History Surgeries: Yes (Dental) Respiratory: No Cardiac: No Neurological: No Genitourinary: No Gastrointestinal: No Musculoskeletal: No Endocrine: No HEENT: No Cancer: No Psychosocial: Yes Anxiety, Bipolar, Depression Integumentary: No Blood Disorders: No Family Medical History FH: multiple sclerosis Physical Exam Vital Signs - First Documented 09/01/20 18:20 Temp 37.0 Pulse 80 Resp 18 B/P (MAP) 119/83 (95) Pulse Ox 96 O2 Delivery Room Air Capillary Refill : Height, Weight, BMI Height: 5'9.00" Weight: 120lbs. oz. 54.822418dd; 22.58 BMI Method:Stated General Appearance: mild distress, other (Tearful) Respiratory: lungs clear, normal breath sounds Cardiovascular: normal peripheral pulses, regular rate, rhythm Gastrointestinal: non tender, soft Neurologic/Psychiatric: alert, depressed affect Appearance/Memory: appropriate appearance, appropriate insight Behavior/Eye Contact: cooperative, good eye contact, other (Tearful) Thoughts/Hallucinations: other (Depressed) Skin: normal color, warm/dry Progress/Results/Core Measures Results/Orders Lab Results Laboratory Tests Test 09/01/20 18:45 09/01/20 19:20 Range/Units White Blood Count 5.7 4.3-11.0 10^3/uL Red Blood Count 4.24 L 4.35-5.85 10^6/uL Hemoglobin 12.2 11.5-16.0 G/DL Hematocrit 38 35-52 % Mean Corpuscular Volume 90 80-99 FL Mean Corpuscular Hemoglobin 29 25-34 PG Mean Corpuscular Hemoglobin Concent 32 32-36 G/DL Red Cell Distribution Width 13.1 10.0-14.5 % Platelet Count 328 130-400 10^3/uL Mean Platelet Volume 9.1 7.4-10.4 FL Immature Granulocyte % (Auto) 0 % Neutrophils (%) (Auto) 46 42-75 % Lymphocytes (%) (Auto) 44 12-44 % Monocytes (%) (Auto) 8 0-12 % Eosinophils (%) (Auto) 2 0-10 % Basophils (%) (Auto) 0 0-10 % Neutrophils # (Auto) 2.6 1.8-7.8 X 10^3 Lymphocytes # (Auto) 2.5 1.0-4.0 X 10^3 Monocytes # (Auto) 0.4 0.0-1.0 X 10^3 Eosinophils # (Auto) 0.1 0.0-0.3 10^3/uL Basophils # (Auto) 0.0 0.0-0.1 10^3/uL Immature Granulocyte # (Auto) 0.0 0.0-0.1 10^3/uL Sodium Level 139 135-145 MMOL/L Potassium Level 4.2 3.6-5.0 MMOL/L Chloride Level 101 98-107 MMOL/L Carbon Dioxide Level 28 21-32 MMOL/L Anion Gap 10 5-14 MMOL/L Blood Urea Nitrogen 12 7-18 MG/DL Creatinine 0.93 0.60-1.30 MG/DL Estimat Glomerular Filtration Rate > 60 BUN/Creatinine Ratio 13 Glucose Level 96 70-105 MG/DL Calcium Level 9.6 8.5-10.1 MG/DL Corrected Calcium 8.5-10.1 MG/DL Total Bilirubin 0.2 0.1-1.0 MG/DL Aspartate Amino Transf (AST/SGOT) 19 5-34 U/L Alanine Aminotransferase (ALT/SGPT) 15 0-55 U/L Alkaline Phosphatase 84 40-136 U/L Total Protein 7.7 6.4-8.2 GM/DL Albumin 4.8 H 3.2-4.5 GM/DL Salicylates Level 0.6 L 5.0-20.0 MG/DL Acetaminophen Level < 10 L 10-30 UG/ML Serum Alcohol < 10 <10 MG/DL Urine Color YELLOW Urine Clarity CLOUDY Urine pH 6.5 5-9 Urine Specific Elmore 1.010 L 1.016-1.022 Urine Protein NEGATIVE NEGATIVE Urine Glucose (UA) NEGATIVE NEGATIVE Urine Ketones NEGATIVE NEGATIVE Urine Nitrite NEGATIVE NEGATIVE Urine Bilirubin NEGATIVE NEGATIVE Urine Urobilinogen 0.2 < = 1.0 MG/DL Urine Leukocyte Esterase 2+ H NEGATIVE Urine RBC (Auto) 3+ H NEGATIVE Urine RBC 2-5 H /HPF Urine WBC 50-100 H /HPF Urine Squamous Epithelial Cells 10-25 H /HPF Urine Crystals NONE /LPF Urine Bacteria FEW H /HPF Urine Casts NONE /LPF Urine Mucus NEGATIVE /LPF Urine Culture Indicated YES Urine Opiates Screen NEGATIVE NEGATIVE Urine Oxycodone Screen NEGATIVE NEGATIVE Urine Methadone Screen NEGATIVE NEGATIVE Urine Propoxyphene Screen NEGATIVE NEGATIVE Urine Barbiturates Screen NEGATIVE NEGATIVE Ur Tricyclic Antidepressants Screen NEGATIVE NEGATIVE Urine Phencyclidine Screen NEGATIVE NEGATIVE Urine Amphetamines Screen NEGATIVE NEGATIVE Urine Methamphetamines Screen NEGATIVE NEGATIVE Urine Benzodiazepines Screen POSITIVE H NEGATIVE Urine Cocaine Screen NEGATIVE NEGATIVE Urine Cannabinoids Screen NEGATIVE NEGATIVE My Orders Orders - BUCK,HAY L DO Ua Culture If Indicated (09/01/20 18:29) Cbc With Automated Diff (09/01/20 18:29) Comprehensive Metabolic Panel (09/01/20 18:29) Alcohol (09/01/20 18:29) Drug Screen Stat (Urine) (09/01/20 18:29) Acetaminophen (09/01/20 18:29) Salicylate (09/01/20 18:29) Ekg Tracing (09/01/20 18:29) Thyroid Analyzer (09/01/20 18:29) Urine Culture (09/01/20 19:20) Vital Signs/I&O 09/01/20 09/01/20 18:20 23:38 Temp 37.0 36.8 Pulse 80 78 Resp 18 16 B/P (MAP) 119/83 (95) 112/75 (95) Pulse Ox 96 98 O2 Delivery Room Air Room Air Progress Progress Note : Progress Note Patient was evaluated by mental health. They developed an outpatient care plan and safety plan. He does have her mom to help take care of her child. Patient will be discharged home in stable condition. Initial ECG Impression Date: Sep 01, 2020 Initial ECG Impression Time: 18:54 Initial ECG Rate: 53 Initial ECG Rhythm: Normal Sinus Initial ECG Impression: Nonspecific Changes Comment no acute findings Departure Impression Primary Impression: depression associated with second Disposition: 01 HOME, SELF-CARE Condition: Stable Departure-Patient Inst. Referrals: NO,LOCAL PHYSICIAN (PCP/Family) Primary Care Physician Patient Instructions: Depression Add. Discharge Instructions: Follow-up with mental health as discussed during your screening Follow-up with your primary care provider and OB next week Return to the ER as needed HAY BUCK DO Sep 01, 2020 18:17
[2020-09-01 18:50] LABS: BASOPHILS % (AUTO) 0 % (0-10); EOSINOPHILS % (AUTO) 2 % (0-10); HEMATOCRIT 38 % (35-52); HEMOGLOBIN 12.2 G/DL (11.5-16.0); LYMPHOCYTES % (AUTO) 44 % (12-44); MEAN CORPUSCULAR HEMOGLOBIN 29 PG (25-34); MEAN CORPUSCULAR HGB CONC 32 G/DL (32-36); MEAN CORPUSCULAR VOLUME 90 FL (80-99); MEAN PLATELET VOLUME 9.1 FL (7.4-10.4); MONOCYTES % (AUTO) 8 % (0-12); NEUTROPHILS % (AUTO) 46 % (42-75); PLATELET COUNT 328 10^3/uL (130-400); WHITE BLOOD COUNT 5.7 10^3/uL (4.3-11.0)
[2020-09-01 18:51] LABS: EOSINOPHILS # (AUTO) 0.1 10^3/uL (0.0-0.3); LYMPHOCYTES # (AUTO) 2.5 X 10^3 (1.0-4.0); MONOCYTES # (AUTO) 0.4 X 10^3 (0.0-1.0); NEUTROPHILS # (AUTO) 2.6 X 10^3 (1.8-7.8)
[2020-09-01 19:08] LABS: CARBON DIOXIDE 28 MMOL/L (21-32); CHLORIDE 101 MMOL/L (98-107); POTASSIUM 4.2 MMOL/L (3.6-5.0); SODIUM 139 MMOL/L (135-145)
[2020-09-01 19:09] LABS: ACETAMINOPHEN < 10 UG/ML (10-30); ALANINE AMINOTRANSFERASE 15 U/L (0-55); ALBUMIN 4.8 GM/DL (3.2-4.5); ALKALINE PHOSPHATASE 84 U/L (40-136); BILIRUBIN,TOTAL 0.2 MG/DL (0.1-1.0); BUN/CREATININE RATIO 13; CALCIUM 9.6 MG/DL (8.5-10.1); CREATININE SERUM 0.93 MG/DL (0.60-1.30); GFR ESTIMATED > 60; GLUCOSE 96 MG/DL (70-105); SALICYLATE 0.6 MG/DL (5.0-20.0); TOTAL PROTEIN 7.7 GM/DL (6.4-8.2)
[2020-09-01 19:31] LABS: BACTERIA,URINE FEW /HPF; BILIRUBIN,URINE NEGATIVE (NEGATIVE); CLARITY,URINE CLOUDY; COLOR,URINE YELLOW; GLUCOSE, URINE (UA) NEGATIVE (NEGATIVE); KETONES,URINE NEGATIVE (NEGATIVE); LEUKOCYTE ESTERASE ,URINE 2+ (NEGATIVE); NITRITE,URINE NEGATIVE (NEGATIVE); PH,URINE 6.5 (5-9); PROTEIN,URINE NEGATIVE (NEGATIVE); WBC,URINE 50-100 /HPF
[2020-09-01 19:36] LABS: BENZODIAZEPINES SCREEN URINE POSITIVE (NEGATIVE)
[2020-09-01 19:37] LABS: AMPHETAMINE SCREEN, URINE NEGATIVE (NEGATIVE); BARBITURATE SCREEN URINE NEGATIVE (NEGATIVE); CANNABINOID SCREEN, URINE NEGATIVE (NEGATIVE); COCAINE SCREEN URINE NEGATIVE (NEGATIVE); METHADONE STAT NEGATIVE (NEGATIVE); METHAMPHETAMINE SCREEN URINE S NEGATIVE (NEGATIVE); OPIATE SCREEN URINE NEGATIVE (NEGATIVE); OXYCODONE STAT NEGATIVE (NEGATIVE); PROPOXYPHENE STAT NEGATIVE (NEGATIVE); TRICYCLIC ANTIDEPRESSANTS SCRE NEGATIVE (NEGATIVE)
--- NOTE | 2020-09-01 20:06 | NUR ---
Faxed patient information to [phone]. Tracking number [id number].
--- NOTE | 2020-09-01 20:09 | NUR ---
Called [facility] at 1947 for screening.
--- NOTE | 2020-09-01 21:24 | NUR ---
Patient sleeping on cot, no distress noted.
--- NOTE | 2020-09-01 22:19 | NUR ---
Charla called from [facility] for screening.
--- NOTE | 2020-09-01 23:30 | NUR ---
Screening was completed. Charla stated that she was setting up appointment for the patient on the Aug at 1100, also she was sending patient home with a safety plan.
[2020-09-01 23:38] VITALS: BP 112/75
[2020-09-02 14:58] LABS: TSH (THYROID ANALYZER) 0.29 UIU/ML (0.35-4.94)
[2020-09-02 15:44] LABS: FREE T4 (FREE THYROXINE) 0.89 NG/DL (0.70-1.48)
== END 2020-09-01 23:38 | disposition home or self-care (01) ==
LOC: EDUNIT# 18:13 → ER FS 18:15
DX: F53.0 Postpartum depression (principal)
CPT/HCPCS: 36415; 80053; 80306; 81000; 84439; 84443; 85025; 87088; 99283; G0480 ×3; 80320; 80329; 87077; 93005